=== PATIENT | male | born 1945 ===

== ENCOUNTER 2020-03-09 12:07 | Inpatient (IN) ==
[2020-03-09 15:00] LABS: ABG Base Excess -0.5 MMOL/L (-2.5-2.5); ABG HCO3 23.6 MMOL/L (20-26); ABG Oxygen Saturation 78.1 % (95-100); ABG PCO2 30.3 MM HG (35-48); ABG PH 7.471 (7.35-7.45); ABG PO2 42.9 MM HG (80-95); ABG TCO2 19.1 MMOL/L (23-27)
[2020-03-09] MEDS ORDERED: hydrALAZINE 20 MG/1 ML VIAL IV PRN (15:13)
[2020-03-09] MEDS ORDERED: MAGNESIUM SULF RIDER 4 GM in PREMIX 1 EACH IV PRN (15:17)
[2020-03-09] MEDS ORDERED: MAGNESIUM SULF RIDER 2 GM in PREMIX 1 EACH IV PRN (15:17)
[2020-03-09 15:30] LABS: Ferritin 647.9 ng/ml (26-388)
[2020-03-09] MEDS ORDERED: AZITHROMYCIN INJ 500 MG in SODIUM CHLORIDE 0.9% 250 ML IV SCH (15:30)
[2020-03-09] MEDS ORDERED: AZITHROMYCIN 250 MG TABLET PO ONE (15:30)
[2020-03-09] MEDS: ENOXAPARIN 80 MG/0.8 ML SYRINGE SUBCUT SCH (15:36)
[2020-03-09] MEDS: PANTOPRAZOLE 40 MG VIAL IV SCH (15:37)
[2020-03-09] MEDS: cefTRIAXone 1,000 MG in SYRINGE 1 EACH IV SCH (15:37)
[2020-03-09] MEDS: HYDROXYCHLOROQUINE 200 MG TABLET PO SCH ×2 (15:37→21:31)
[2020-03-09] MEDS: SODIUM CHLORIDE 0.9% 1,000 ML IV SCH ×2 (15:38→23:38)
[2020-03-09] MEDS: ZINC SULFATE 220 MG CAPSULE PO SCH (15:38)
[2020-03-09] MEDS ORDERED: VECURONIUM 10 MG VIAL IV ONE ×2 (20:03→21:09)
[2020-03-09] MEDS ORDERED: ETOMIDATE 20 MG/10 ML VIAL IV ONE ×2 (20:03→21:08)
[2020-03-09 21:37] LABS: ABG Base Excess -3.7 MMOL/L (-2.5-2.5); ABG HCO3 21.3 MMOL/L (20-26); ABG PH 7.226 (7.35-7.45); ABG TCO2 22.8 MMOL/L (23-27); Allen Test Positive; Pt O2 Delivery Device Ventilator
[2020-03-09] MEDS: hydrALAZINE 20 MG/1 ML VIAL IV PRN (22:34)
[2020-03-10] MEDS: ENOXAPARIN 80 MG/0.8 ML SYRINGE SUBCUT SCH ×2 (04:40→16:20)
[2020-03-10 04:45] LABS: Allen Test Positive; Pt O2 Delivery Device Ventilator
[2020-03-10 04:46] LABS: ABG HCO3 23.6 MMOL/L (20-26); ABG Oxygen Saturation 99.2 % (95-100); ABG PCO2 31.3 MM HG (35-48); ABG PH 7.455 (7.35-7.45); ABG TCO2 19.3 MMOL/L (23-27)
[2020-03-10 05:33] LABS: Basophils # 0.1 10*3/uL (0.0-0.2); Basophils % 0.8 % (0.0-0.8); Hematocrit 39.5 VOL% (42.0-52.0); Hemoglobin 12.4 GM/DL (14.0-18.0); Immature Granulocytes % 4.1 %; Immature Granulocytes Absolute 0.52 #; Lymphocytes # 0.4 10*3/uL (1.4-4.0); Mean Corpuscular HGB Conc 31.4 GM/DL (32-36); Mean Corpuscular Volume 88.2 FL (87-102); Mean Platelet Volume 11.5 FL (9.6-12.0); Monocytes % 2.1 % (1.7-12.7); Platelet Count 177 T/CUMM (130-400); Red Blood Count 4.48 MC/CUMM (3.8-5.5); Red Cell Distribution Width 15.8 % (9.3-17.3); White Blood Count 12.8 T/CUMM (4-12)
[2020-03-10 06:08] LABS: Band Neutrophils 14 % (0-10); Lymphocytes 5 % (20-55); Metamyelocytes 1 %; Segmented Neutrophils 76 % (50-85); Total Cells Counted 100
[2020-03-10 06:11] LABS: Acanthocytes Few; Burr Cells Slight; Hypochromasia 1+; Microcytosis Slight
[2020-03-10 06:12] LABS: Platelet Estimate Adequate
[2020-03-10] MEDS: SODIUM CHLORIDE 0.9% 1,000 ML IV SCH ×2 (07:38→16:51)
[2020-03-10] MEDS: AZITHROMYCIN 250 MG TABLET PO SCH (08:42)
[2020-03-10] MEDS: HYDROXYCHLOROQUINE 200 MG TABLET PO SCH ×2 (08:42→22:00)
[2020-03-10] MEDS: methylPREDNISolone SOD SUC 40 MG/1 ML VIAL IV SCH ×2 (08:58→16:52)
[2020-03-10 10:00] LABS: Albumin 2.2 G/DL (3.4-5.0); Bilirubin,Total 0.9 MG/DL (0.2-1.0); Calcium 8.1 MG/DL (8.5-10.1); Osmolality,Calculated 277.7 MOS/KG (273-304); Total Protein 6.4 G/DL (6.4-8.3)
[2020-03-10] MEDS ORDERED: GLUCAGON 1 MG VIAL IM PRN (11:14)
[2020-03-10] MEDS ORDERED: DEXTROSE 10% 250 ML BAG IV PRN (11:14)
[2020-03-10] MEDS ORDERED: NOREPINEPHRINE 8 MG in SODIUM CHLORIDE 0.9% 242 ML IV PRN (11:36)
[2020-03-10] MEDS ORDERED: SODIUM CHLORIDE 0.9% 1,000 ML IV ONE (12:20)
[2020-03-10] MEDS: INSULIN REGULAR 100 UNIT/ML SUBCUT SCH ×2 (12:25→17:40)
[2020-03-10] MEDS: PANTOPRAZOLE 40 MG VIAL IV SCH (15:38)
[2020-03-10] MEDS: cefTRIAXone 1,000 MG in SYRINGE 1 EACH IV SCH (15:40)
[2020-03-10] MEDS ORDERED: HYDROXYCHLOROQUINE 200 MG TABLET PO SCH (21:00)
[2020-03-11] MEDS: methylPREDNISolone SOD SUC 40 MG/1 ML VIAL IV SCH ×3 (00:15→17:58)
[2020-03-11] MEDS: INSULIN REGULAR 100 UNIT/ML SUBCUT SCH ×4 (01:22→18:39)
[2020-03-11] MEDS: SODIUM CHLORIDE 0.9% 1,000 ML IV SCH ×4 (01:24→23:14)
[2020-03-11 04:44] LABS: ABG Base Excess -2.5 MMOL/L (-2.5-2.5); ABG HCO3 22.3 MMOL/L (20-26); ABG Oxygen Saturation 98.5 % (95-100); ABG PCO2 34.2 MM HG (35-48); ABG PH 7.406 (7.35-7.45); ABG TCO2 18.9 MMOL/L (23-27); Allen Test Positive; Pt O2 Delivery Device Ventilator
[2020-03-11] MEDS: ENOXAPARIN 80 MG/0.8 ML SYRINGE SUBCUT SCH ×2 (04:54→14:49)
[2020-03-11 05:20] LABS: Basophils # 0.1 10*3/uL (0.0-0.2); Basophils % 0.4 % (0.0-0.8); Hematocrit 33.8 VOL% (42.0-52.0); Immature Granulocytes % 0.5 %; Immature Granulocytes Absolute 0.07 #; Lymphocytes # 0.3 10*3/uL (1.4-4.0); Lymphocytes % 1.9 % (21.2-54.2); Mean Corpuscular HGB Conc 30.8 GM/DL (32-36); Mean Corpuscular Volume 89.4 FL (87-102); Mean Platelet Volume 11.3 FL (9.6-12.0); Monocytes % 1.6 % (1.7-12.7); Neutrophils % 95.6 % (38.7-73.9); Platelet Count 186 T/CUMM (130-400); Red Blood Count 3.78 MC/CUMM (3.8-5.5); Red Cell Distribution Width 15.9 % (9.3-17.3); White Blood Count 14.4 T/CUMM (4-12)
[2020-03-11 05:22] LABS: Hemoglobin 10.4 GM/DL (14.0-18.0)
[2020-03-11 05:30] LABS: Calcium 7.6 MG/DL (8.5-10.1); Osmolality,Calculated 289.4 MOS/KG (273-304)
[2020-03-11 06:10] LABS: Band Neutrophils 4 % (0-10); Burr Cells Slight; Hypochromasia 1+; Lymphocytes 1 % (20-55); Ovalocytes Slight; Platelet Estimate Adequate; Segmented Neutrophils 93 % (50-85); Total Cells Counted 100
[2020-03-11 06:11] LABS: Microcytosis Slight
[2020-03-11] MEDS: HYDROXYCHLOROQUINE 200 MG TABLET PO SCH ×2 (08:27→20:01)
[2020-03-11] MEDS: AZITHROMYCIN 250 MG TABLET PO SCH (08:27)
[2020-03-11] MEDS: ZINC SULFATE 220 MG CAPSULE PO SCH (14:49)
[2020-03-11] MEDS: PANTOPRAZOLE 40 MG VIAL IV SCH (14:49)
[2020-03-11] MEDS: cefTRIAXone 1,000 MG in SYRINGE 1 EACH IV SCH (14:49)
[2020-03-11] MEDS ORDERED: NOREPINEPHRINE 16 MG in SODIUM CHLORIDE 0.9% 234 ML IV PRN (15:35)
[2020-03-11] MEDS ORDERED: SODIUM CHLORIDE 0.9% 1,000 ML IV ONE (16:00)
[2020-03-12] MEDS: INSULIN REGULAR 100 UNIT/ML SUBCUT SCH ×4 (00:08→18:10)
[2020-03-12] MEDS: methylPREDNISolone SOD SUC 40 MG/1 ML VIAL IV SCH ×3 (00:52→15:32)
[2020-03-12 03:30] LABS: ABG Base Excess -3.6 MMOL/L (-2.5-2.5); ABG HCO3 21.5 MMOL/L (20-26); ABG Oxygen Saturation 98.3 % (95-100); ABG PCO2 33.1 MM HG (35-48); ABG TCO2 18.4 MMOL/L (23-27)
[2020-03-12] MEDS: ENOXAPARIN 80 MG/0.8 ML SYRINGE SUBCUT SCH ×2 (03:58→15:25)
[2020-03-12 04:28] LABS: Basophils % 0.2 % (0.0-0.8); Hematocrit 32.6 VOL% (42.0-52.0); Hemoglobin 10.2 GM/DL (14.0-18.0); Immature Granulocytes % 0.4 %; Immature Granulocytes Absolute 0.08 #; Lymphocytes # 0.3 10*3/uL (1.4-4.0); Lymphocytes % 1.7 % (21.2-54.2); Mean Corpuscular HGB Conc 31.3 GM/DL (32-36); Mean Corpuscular Volume 87.9 FL (87-102); Mean Platelet Volume 11.2 FL (9.6-12.0); Monocytes % 2.2 % (1.7-12.7); Neutrophils % 95.5 % (38.7-73.9); Platelet Count 227 T/CUMM (130-400); Red Blood Count 3.71 MC/CUMM (3.8-5.5); White Blood Count 17.9 T/CUMM (4-12)
[2020-03-12 04:36] LABS: Calcium 8.2 MG/DL (8.5-10.1); Osmolality,Calculated 296.1 MOS/KG (273-304)
[2020-03-12 05:22] LABS: Band Neutrophils 4 % (0-10); Eosinophils 1 % (0-10); Metamyelocytes 3 %; Platelet Estimate Normal; Segmented Neutrophils 90 % (50-85); Total Cells Counted 100
[2020-03-12] MEDS: SODIUM CHLORIDE 0.9% 1,000 ML IV SCH (06:08)
[2020-03-12] MEDS: HYDROXYCHLOROQUINE 200 MG TABLET PO SCH ×2 (09:45→20:21)
[2020-03-12] MEDS: AZITHROMYCIN 250 MG TABLET PO SCH (09:45)
[2020-03-12] MEDS: cefTRIAXone 1,000 MG in SYRINGE 1 EACH IV SCH (15:28)
[2020-03-12] MEDS: PANTOPRAZOLE 40 MG VIAL IV SCH (15:28)
[2020-03-13] MEDS: methylPREDNISolone SOD SUC 40 MG/1 ML VIAL IV SCH ×3 (00:05→15:54)
[2020-03-13] MEDS: INSULIN REGULAR 100 UNIT/ML SUBCUT SCH ×4 (00:05→17:55)
[2020-03-13] MEDS: ENOXAPARIN 80 MG/0.8 ML SYRINGE SUBCUT SCH ×2 (03:54→16:00)
[2020-03-13 04:32] LABS: ABG Base Excess -2.9 MMOL/L (-2.5-2.5); ABG HCO3 21.3 MMOL/L (20-26); ABG Oxygen Saturation 98.6 % (95-100); ABG PCO2 34.8 MM HG (35-48); ABG PH 7.404 (7.35-7.45); ABG PO2 150.6 MM HG (80-95); ABG TCO2 22.3 MMOL/L (23-27); Allen Test Positive; Pt O2 Delivery Device Ventilator
[2020-03-13 04:44] LABS: Basophils % 0.1 % (0.0-0.8); Hematocrit 31.7 VOL% (42.0-52.0); Immature Granulocytes % 1.2 %; Immature Granulocytes Absolute 0.14 #; Lymphocytes # 0.4 10*3/uL (1.4-4.0); Lymphocytes % 3.1 % (21.2-54.2); Mean Corpuscular HGB Conc 31.5 GM/DL (32-36); Mean Corpuscular Volume 86.1 FL (87-102); NRBC # 0.03 10*3/uL; Neutrophils % 91.6 % (38.7-73.9); Platelet Count 239 T/CUMM (130-400); Red Blood Count 3.68 MC/CUMM (3.8-5.5); Red Cell Distribution Width 16.1 % (9.3-17.3); White Blood Count 11.5 T/CUMM (4-12)
[2020-03-13 05:07] LABS: Band Neutrophils 1 % (0-10); Lymphocytes 3 % (20-55); Segmented Neutrophils 93 % (50-85); Total Cells Counted 100
[2020-03-13 05:08] LABS: Burr Cells Slight; Hypochromasia 1+; Ovalocytes Slight; Platelet Estimate Adequate
[2020-03-13] MEDS: HYDROXYCHLOROQUINE 200 MG TABLET PO SCH ×2 (08:10→20:35)
[2020-03-13] MEDS: MULTIVITAMIN LIQUID (CENTRUM) 60 ML BOTTLE PO SCH (08:10)
[2020-03-13] MEDS: AZITHROMYCIN 250 MG TABLET PO SCH (08:10)
[2020-03-13] MEDS: PANTOPRAZOLE 40 MG VIAL IV SCH (15:48)
[2020-03-13] MEDS: cefTRIAXone 1,000 MG in SYRINGE 1 EACH IV SCH (15:50)
[2020-03-13] MEDS: ZINC SULFATE 220 MG CAPSULE PO SCH (16:00)
[2020-03-14] MEDS: methylPREDNISolone SOD SUC 40 MG/1 ML VIAL IV SCH ×3 (00:15→16:12)
[2020-03-14] MEDS: INSULIN REGULAR 100 UNIT/ML SUBCUT SCH ×4 (00:16→17:44)
[2020-03-14 04:59] LABS: ABG Base Excess -2.2 MMOL/L (-2.5-2.5); ABG HCO3 21.7 MMOL/L (20-26); ABG Oxygen Saturation 96.2 % (95-100); ABG PH 7.422 (7.35-7.45); ABG PO2 88.2 MM HG (80-95); ABG TCO2 22.7 MMOL/L (23-27); Allen Test Positive; Pt O2 Delivery Device Ventilator
[2020-03-14] MEDS: ENOXAPARIN 80 MG/0.8 ML SYRINGE SUBCUT SCH ×2 (05:17→16:12)
[2020-03-14 05:18] LABS: Basophils % 0.2 % (0.0-0.8); Hemoglobin 10.1 GM/DL (14.0-18.0); Immature Granulocytes % 4.6 %; Lymphocytes # 0.3 10*3/uL (1.4-4.0); Lymphocytes % 5.2 % (21.2-54.2); Mean Corpuscular HGB Conc 31.6 GM/DL (32-36); Mean Corpuscular Volume 85.3 FL (87-102); Mean Platelet Volume 10.9 FL (9.6-12.0); Monocytes % 8.5 % (1.7-12.7); NRBC # 0.02 10*3/uL; Neutrophils % 81.5 % (38.7-73.9); Platelet Count 267 T/CUMM (130-400); Red Blood Count 3.75 MC/CUMM (3.8-5.5); Red Cell Distribution Width 16.3 % (9.3-17.3); White Blood Count 6.6 T/CUMM (4-12)
[2020-03-14 05:37] LABS: Calcium 8.2 MG/DL (8.5-10.1); Osmolality,Calculated 304.6 MOS/KG (273-304)
[2020-03-14] MEDS: MULTIVITAMIN LIQUID (CENTRUM) 60 ML BOTTLE PO SCH (08:07)
[2020-03-14 09:17] LABS: Lymphocytes 6 % (20-55); Metamyelocytes 2 %; Segmented Neutrophils 89 % (50-85); Total Cells Counted 100
[2020-03-14 09:18] LABS: Atypical Lymphocytes Few; Hypochromasia 1+; Microcytosis 1+; Platelet Estimate Increased; Polychromasia Slight; Spherocytes Few
[2020-03-14] MEDS: DEXMEDETOMIDINE 200 MCG in SODIUM CHLORIDE 0.9% 48 ML IV PRN ×3 (12:36→21:01)
[2020-03-14] MEDS: PANTOPRAZOLE 40 MG VIAL IV SCH (16:07)
[2020-03-14] MEDS: cefTRIAXone 1,000 MG in SYRINGE 1 EACH IV SCH (16:09)
[2020-03-14] MEDS: ASCORBIC ACID 500 MG TABLET PO SCH (20:59)
[2020-03-15] MEDS: INSULIN REGULAR 100 UNIT/ML SUBCUT SCH ×5 (00:17→23:44)
[2020-03-15] MEDS: ENOXAPARIN 80 MG/0.8 ML SYRINGE SUBCUT SCH ×2 (03:25→16:20)
[2020-03-15] MEDS: methylPREDNISolone SOD SUC 40 MG/1 ML VIAL IV SCH ×2 (03:25→16:26)
[2020-03-15 04:36] LABS: Basophils % 0.4 % (0.0-0.8); Eosinophils # 0.1 10*3/uL (0.0-0.87); Eosinophils % 0.9 % (0.00-10.9); Hematocrit 33.3 VOL% (42.0-52.0); Hemoglobin 10.5 GM/DL (14.0-18.0); Immature Granulocytes % 4.9 %; Immature Granulocytes Absolute 0.26 #; Lymphocytes # 0.5 10*3/uL (1.4-4.0); Lymphocytes % 9.9 % (21.2-54.2); Mean Corpuscular HGB Conc 31.5 GM/DL (32-36); Mean Corpuscular Volume 85.8 FL (87-102); Mean Platelet Volume 10.6 FL (9.6-12.0); Neutrophils % 75.9 % (38.7-73.9); Platelet Count 246 T/CUMM (130-400); Red Blood Count 3.88 MC/CUMM (3.8-5.5); Red Cell Distribution Width 16.3 % (9.3-17.3); White Blood Count 5.4 T/CUMM (4-12)
[2020-03-15 04:55] LABS: Calcium 8.1 MG/DL (8.5-10.1); Osmolality,Calculated 304.4 MOS/KG (273-304)
[2020-03-15 05:01] LABS: ABG Base Excess -2.1 MMOL/L (-2.5-2.5); ABG HCO3 22.2 MMOL/L (20-26); ABG Oxygen Saturation 96.7 % (95-100); ABG PCO2 36.5 MM HG (35-48); ABG PH 7.402 (7.35-7.45); ABG PO2 94.3 MM HG (80-95); ABG TCO2 23.3 MMOL/L (23-27); Allen Test Positive; Pt O2 Delivery Device Ventilator
[2020-03-15] MEDS: MULTIVITAMIN LIQUID (CENTRUM) 60 ML BOTTLE PO SCH (08:22)
[2020-03-15] MEDS: ZINC GLUCONATE 50 MG TABLET PO SCH (08:22)
[2020-03-15] MEDS: ASCORBIC ACID 500 MG TABLET PO SCH ×2 (08:22→21:51)
[2020-03-15] MEDS: DEXMEDETOMIDINE 200 MCG in SODIUM CHLORIDE 0.9% 48 ML IV PRN ×3 (08:34→19:45)
[2020-03-15 09:22] LABS: Band Neutrophils 1 % (0-10); Eosinophils 3 % (0-10); Hypochromasia 2+; Lymphocytes 5 % (20-55); Microcytosis 1+; Platelet Estimate Normal; Polychromasia Slight; Segmented Neutrophils 80 % (50-85); Total Cells Counted 100
[2020-03-15 09:23] LABS: Ovalocytes Few
[2020-03-15] MEDS ORDERED: FUROSEMIDE 40 MG/4 ML VIAL IV ONE (11:11)
[2020-03-15 11:17] LABS: ABG Base Excess -0.7 MMOL/L (-2.5-2.5); ABG HCO3 23.8 MMOL/L (20-26); ABG PCO2 38.1 MM HG (35-48); ABG PH 7.404 (7.35-7.45); ABG PO2 86.2 MM HG (80-95); ABG TCO2 21.3 MMOL/L (23-27); Allen Test Positive; Pt O2 Delivery Device Ventilator
[2020-03-15] MEDS: cefTRIAXone 1,000 MG in SYRINGE 1 EACH IV SCH (16:23)
[2020-03-15] MEDS: PANTOPRAZOLE 40 MG VIAL IV SCH (16:55)
[2020-03-15] MEDS: hydrALAZINE 20 MG/1 ML VIAL IV PRN (22:17)
[2020-03-15] MEDS ORDERED: ROCURONIUM 500 MG in SODIUM CHLORIDE 0.9% 500 ML IV PRN (23:30)
[2020-03-16] MEDS: fentaNYL INJ 1,250 MCG in SODIUM CHLORIDE 0.9% 225 ML IV PRN ×5 (00:11→23:51)
[2020-03-16] MEDS: methylPREDNISolone SOD SUC 40 MG/1 ML VIAL IV SCH ×2 (04:00→15:38)
[2020-03-16] MEDS: ENOXAPARIN 80 MG/0.8 ML SYRINGE SUBCUT SCH ×2 (04:00→15:38)
[2020-03-16 04:24] LABS: ABG Base Excess -1.2 MMOL/L (-2.5-2.5); ABG HCO3 22.9 MMOL/L (20-26); ABG Oxygen Saturation 97.7 % (95-100); ABG PCO2 36.2 MM HG (35-48); ABG PH 7.419 (7.35-7.45); ABG PO2 105.6 MM HG (80-95); Allen Test Positive; Pt O2 Delivery Device Ventilator
[2020-03-16 04:29] LABS: Basophils % 0.4 % (0.0-0.8); Eosinophils % 0.5 % (0.00-10.9); Hematocrit 34.1 VOL% (42.0-52.0); Hemoglobin 10.9 GM/DL (14.0-18.0); Immature Granulocytes % 4.8 %; Immature Granulocytes Absolute 0.41 #; Lymphocytes # 0.5 10*3/uL (1.4-4.0); Lymphocytes % 5.6 % (21.2-54.2); Mean Platelet Volume 10.2 FL (9.6-12.0); Monocytes % 5.1 % (1.7-12.7); Neutrophils % 83.6 % (38.7-73.9); Platelet Count 243 T/CUMM (130-400); Red Blood Count 4.01 MC/CUMM (3.8-5.5); Red Cell Distribution Width 16.2 % (9.3-17.3); White Blood Count 8.6 T/CUMM (4-12)
[2020-03-16 04:46] LABS: Calcium 8.6 MG/DL (8.5-10.1); Osmolality,Calculated 300.7 MOS/KG (273-304)
[2020-03-16 04:52] LABS: Hypochromasia Slight; Lymphocytes 6 % (20-55); Microcytosis Slight; Ovalocytes Slight; Platelet Estimate Adequate; Segmented Neutrophils 91 % (50-85); Total Cells Counted 100
[2020-03-16] MEDS: INSULIN REGULAR 100 UNIT/ML SUBCUT SCH ×3 (06:27→18:47)
[2020-03-16] MEDS: ASCORBIC ACID 500 MG TABLET PO SCH ×2 (08:40→20:47)
[2020-03-16] MEDS: ZINC GLUCONATE 50 MG TABLET PO SCH (08:40)
[2020-03-16] MEDS: MULTIVITAMIN LIQUID (CENTRUM) 60 ML BOTTLE PO SCH (08:40)
[2020-03-16] MEDS: cefTRIAXone 1,000 MG in SYRINGE 1 EACH IV SCH (15:38)
[2020-03-16] MEDS: PANTOPRAZOLE 40 MG VIAL IV SCH (15:39)
[2020-03-17] MEDS: INSULIN REGULAR 100 UNIT/ML SUBCUT SCH ×4 (00:28→18:29)
[2020-03-17 04:14] LABS: ABG Base Excess -1.2 MMOL/L (-2.5-2.5); ABG HCO3 24.2 MMOL/L (20-26); ABG Oxygen Saturation 98.1 % (95-100); ABG PCO2 43.6 MM HG (35-48); ABG PH 7.363 (7.35-7.45); ABG PO2 117.7 MM HG (80-95); ABG TCO2 25.6 MMOL/L (23-27); Allen Test Positive; Pt O2 Delivery Device Ventilator
[2020-03-17 04:37] LABS: Basophils % 0.2 % (0.0-0.8); Eosinophils # 0.1 10*3/uL (0.0-0.87); Eosinophils % 1.1 % (0.00-10.9); Hematocrit 34.6 VOL% (42.0-52.0); Hemoglobin 10.7 GM/DL (14.0-18.0); Immature Granulocytes % 3.7 %; Immature Granulocytes Absolute 0.35 #; Lymphocytes # 0.6 10*3/uL (1.4-4.0); Lymphocytes % 5.9 % (21.2-54.2); Mean Corpuscular HGB Conc 30.9 GM/DL (32-36); Mean Corpuscular Volume 86.9 FL (87-102); Mean Platelet Volume 11.2 FL (9.6-12.0); Monocytes % 2.9 % (1.7-12.7); Neutrophils % 86.2 % (38.7-73.9); Platelet Count 253 T/CUMM (130-400); Red Blood Count 3.98 MC/CUMM (3.8-5.5); Red Cell Distribution Width 16.6 % (9.3-17.3); White Blood Count 9.5 T/CUMM (4-12)
[2020-03-17] MEDS: ENOXAPARIN 80 MG/0.8 ML SYRINGE SUBCUT SCH ×2 (04:37→15:13)
[2020-03-17] MEDS: methylPREDNISolone SOD SUC 40 MG/1 ML VIAL IV SCH ×2 (04:37→15:13)
[2020-03-17 05:00] LABS: Calcium 8.1 MG/DL (8.5-10.1); Osmolality,Calculated 300.7 MOS/KG (273-304)
[2020-03-17] MEDS: fentaNYL INJ 1,250 MCG in SODIUM CHLORIDE 0.9% 225 ML IV PRN ×4 (07:52→20:39)
[2020-03-17] MEDS: ASCORBIC ACID 500 MG TABLET PO SCH ×2 (08:45→20:09)
[2020-03-17] MEDS: ZINC GLUCONATE 50 MG TABLET PO SCH (08:45)
[2020-03-17] MEDS: hydrALAZINE 20 MG/1 ML VIAL IV PRN (09:38)
[2020-03-17] MEDS ORDERED: DIGOXIN 0.5 MG/2 ML AMP IV ONE ×2 (11:31→13:30)
[2020-03-17] MEDS: MULTIVITAMIN LIQUID (CENTRUM) 60 ML BOTTLE PO SCH (12:43)
[2020-03-17] MEDS: ACETAMINOPHEN 325 MG TABLET PO PRN ×2 (13:02→17:30)
[2020-03-17] MEDS: PANTOPRAZOLE 40 MG VIAL IV SCH (15:14)
[2020-03-17 21:21] LABS: ABG Base Excess -2.8 MMOL/L (-2.5-2.5); ABG HCO3 22.1 MMOL/L (20-26); ABG PCO2 43.3 MM HG (35-48); ABG PH 7.336 (7.35-7.45); ABG PO2 81.3 MM HG (80-95); ABG TCO2 20.3 MMOL/L (23-27); Allen Test Positive; Pt O2 Delivery Device Ventilator
[2020-03-18] MEDS: fentaNYL INJ 1,250 MCG in SODIUM CHLORIDE 0.9% 225 ML IV PRN ×2 (00:01→07:10)
[2020-03-18] MEDS: INSULIN REGULAR 100 UNIT/ML SUBCUT SCH ×5 (00:49→23:52)
[2020-03-18] MEDS: ENOXAPARIN 80 MG/0.8 ML SYRINGE SUBCUT SCH ×2 (04:00→15:48)
[2020-03-18] MEDS: methylPREDNISolone SOD SUC 40 MG/1 ML VIAL IV SCH ×2 (04:00→15:46)
[2020-03-18 05:03] LABS: Basophils % 0.1 % (0.0-0.8); Eosinophils % 0.2 % (0.00-10.9); Hematocrit 33.6 VOL% (42.0-52.0); Hemoglobin 10.5 GM/DL (14.0-18.0); Immature Granulocytes % 0.8 %; Immature Granulocytes Absolute 0.14 #; Lymphocytes # 0.4 10*3/uL (1.4-4.0); Lymphocytes % 2.4 % (21.2-54.2); Mean Corpuscular HGB Conc 31.3 GM/DL (32-36); Mean Corpuscular Volume 87.5 FL (87-102); Mean Platelet Volume 10.9 FL (9.6-12.0); Monocytes % 0.7 % (1.7-12.7); Neutrophils % 95.8 % (38.7-73.9); Platelet Count 226 T/CUMM (130-400); Red Blood Count 3.84 MC/CUMM (3.8-5.5); Red Cell Distribution Width 16.5 % (9.3-17.3); White Blood Count 16.8 T/CUMM (4-12)
[2020-03-18 05:21] LABS: Calcium 8.2 MG/DL (8.5-10.1); Osmolality,Calculated 291.1 MOS/KG (273-304)
[2020-03-18 05:23] LABS: Band Neutrophils 6 % (0-10); Hypochromasia 1+; Lymphocytes 1 % (20-55); Microcytosis 1+; Ovalocytes Slight; Polychromasia Slight; Segmented Neutrophils 93 % (50-85); Total Cells Counted 100
[2020-03-18 05:24] LABS: Platelet Estimate Normal
[2020-03-18] MEDS: fentaNYL INJ 2,500 MCG in SODIUM CHLORIDE 0.9% 450 ML IV PRN ×2 (07:10→21:40)
[2020-03-18] MEDS: ASCORBIC ACID 500 MG TABLET PO SCH ×2 (08:41→20:37)
[2020-03-18] MEDS: ZINC GLUCONATE 50 MG TABLET PO SCH (08:41)
[2020-03-18] MEDS: MULTIVITAMIN LIQUID (CENTRUM) 60 ML BOTTLE PO SCH ×2 (08:43→12:11)
[2020-03-18] MEDS: DIGOXIN 0.25 MG TABLET PO SCH (12:10)
[2020-03-18] MEDS: hydrALAZINE 20 MG/1 ML VIAL IV PRN (14:35)
[2020-03-18] MEDS: PANTOPRAZOLE 40 MG VIAL IV SCH (15:44)
[2020-03-18] MEDS: ACETAMINOPHEN 325 MG TABLET PO PRN (16:05)
[2020-03-19] MEDS: methylPREDNISolone SOD SUC 40 MG/1 ML VIAL IV SCH ×2 (04:12→16:06)
[2020-03-19] MEDS: ENOXAPARIN 80 MG/0.8 ML SYRINGE SUBCUT SCH ×2 (04:12→16:06)
[2020-03-19 04:30] LABS: ABG HCO3 22.7 MMOL/L (20-26); ABG Oxygen Saturation 95.9 % (95-100); ABG PCO2 39.7 MM HG (35-48); ABG PH 7.372 (7.35-7.45); ABG PO2 80.6 MM HG (80-95); ABG TCO2 20.7 MMOL/L (23-27); Allen Test Positive; Pt O2 Delivery Device Ventilator
[2020-03-19 04:38] LABS: Basophils % 0.1 % (0.0-0.8); Hematocrit 33.9 VOL% (42.0-52.0); Hemoglobin 10.7 GM/DL (14.0-18.0); Immature Granulocytes % 0.8 %; Immature Granulocytes Absolute 0.13 #; Lymphocytes # 0.3 10*3/uL (1.4-4.0); Lymphocytes % 1.8 % (21.2-54.2); Mean Corpuscular HGB Conc 31.6 GM/DL (32-36); Mean Corpuscular Volume 86.5 FL (87-102); Mean Platelet Volume 10.7 FL (9.6-12.0); Monocytes % 0.7 % (1.7-12.7); Neutrophils % 96.6 % (38.7-73.9); Platelet Count 230 T/CUMM (130-400); Red Blood Count 3.92 MC/CUMM (3.8-5.5); Red Cell Distribution Width 16.3 % (9.3-17.3); White Blood Count 15.6 T/CUMM (4-12)
[2020-03-19] MEDS: fentaNYL INJ 2,500 MCG in SODIUM CHLORIDE 0.9% 450 ML IV PRN ×2 (04:49→11:45)
[2020-03-19 04:51] LABS: Calcium 8.1 MG/DL (8.5-10.1); Osmolality,Calculated 291.4 MOS/KG (273-304)
[2020-03-19 05:13] LABS: Band Neutrophils 2 % (0-10); Hypochromasia 1+; Lymphocytes 3 % (20-55); Segmented Neutrophils 93 % (50-85); Total Cells Counted 100
[2020-03-19 05:14] LABS: Microcytosis 1+; Ovalocytes Slight; Platelet Estimate Normal; Spherocytes Slight; Target Cells Slight
[2020-03-19] MEDS: INSULIN REGULAR 100 UNIT/ML SUBCUT SCH ×3 (05:14→17:54)
[2020-03-19] MEDS: MULTIVITAMIN LIQUID (CENTRUM) 60 ML BOTTLE PO SCH (08:11)
[2020-03-19] MEDS: ZINC GLUCONATE 50 MG TABLET PO SCH (08:11)
[2020-03-19] MEDS: ASCORBIC ACID 500 MG TABLET PO SCH ×2 (08:11→20:12)
[2020-03-19] MEDS ORDERED: FUROSEMIDE 40 MG/4 ML VIAL IV ONE (10:24)
[2020-03-19] MEDS: DIGOXIN 0.25 MG TABLET PO SCH (13:23)
[2020-03-19] MEDS: PANTOPRAZOLE 40 MG VIAL IV SCH ×2 (16:06→16:43)
[2020-03-19] MEDS ORDERED: DIGOXIN 0.5 MG/2 ML AMP IV ONE (16:28)
[2020-03-19 17:15] LABS: Calcium 8.8 MG/DL (8.5-10.1)
[2020-03-19] MEDS: METOPROLOL TARTRATE 5 MG/5 ML VIAL IV PRN ×3 (17:29→18:11)
[2020-03-19] MEDS ORDERED: RACEPINEPHRINE 0.5 ML NEB RESP TX ONE (17:53)
[2020-03-19] MEDS ORDERED: METOPROLOL TARTRATE 5 MG/5 ML VIAL IV ONE (18:10)
[2020-03-19] MEDS: hydrALAZINE 20 MG/1 ML VIAL IV PRN (20:13)
[2020-03-20] MEDS: INSULIN REGULAR 100 UNIT/ML SUBCUT SCH ×4 (00:33→18:02)
[2020-03-20] MEDS: hydrALAZINE 20 MG/1 ML VIAL IV PRN ×2 (02:55→09:14)
[2020-03-20] MEDS: ENOXAPARIN 80 MG/0.8 ML SYRINGE SUBCUT SCH ×2 (04:41→15:30)
[2020-03-20] MEDS: methylPREDNISolone SOD SUC 40 MG/1 ML VIAL IV SCH ×2 (04:42→15:30)
[2020-03-20 05:31] LABS: Basophils % 0.1 % (0.0-0.8); Hematocrit 37.8 VOL% (42.0-52.0); Hemoglobin 12.2 GM/DL (14.0-18.0); Immature Granulocytes % 0.5 %; Immature Granulocytes Absolute 0.04 #; Lymphocytes # 0.4 10*3/uL (1.4-4.0); Lymphocytes % 4.4 % (21.2-54.2); Mean Corpuscular HGB Conc 32.3 GM/DL (32-36); Mean Corpuscular Volume 82.7 FL (87-102); Mean Platelet Volume 10.9 FL (9.6-12.0); Monocytes % 2.2 % (1.7-12.7); Neutrophils % 92.8 % (38.7-73.9); Platelet Count 285 T/CUMM (130-400); Red Blood Count 4.57 MC/CUMM (3.8-5.5); Red Cell Distribution Width 15.9 % (9.3-17.3); White Blood Count 8.7 T/CUMM (4-12)
[2020-03-20 05:46] LABS: Calcium 8.8 MG/DL (8.5-10.1); Osmolality,Calculated 286.7 MOS/KG (273-304)
[2020-03-20 05:58] LABS: Band Neutrophils 5 % (0-10); Hypochromasia 1+; Lymphocytes 2 % (20-55); Segmented Neutrophils 90 % (50-85); Total Cells Counted 100
[2020-03-20 05:59] LABS: Microcytosis 1+; Platelet Estimate Normal
[2020-03-20] MEDS: ASCORBIC ACID 500 MG TABLET PO SCH ×2 (09:02→20:05)
[2020-03-20] MEDS: ZINC GLUCONATE 50 MG TABLET PO SCH (09:02)
[2020-03-20] MEDS: MULTIVITAMIN LIQUID (CENTRUM) 60 ML BOTTLE PO SCH (09:05)
[2020-03-20] MEDS ORDERED: VERAPAMIL 5 MG/2 ML VIAL IV PRN (09:36)
[2020-03-20] MEDS: METOPROLOL TARTRATE 100 MG TABLET PO SCH ×2 (09:57→20:06)
[2020-03-20] MEDS: cloNIDine 0.3 MG/24 HR PATCH TRANSDERM SCH (12:01)
[2020-03-20] MEDS: DIGOXIN 0.25 MG TABLET PO SCH (12:01)
[2020-03-20] MEDS: PANTOPRAZOLE 40 MG VIAL IV SCH (17:44)
[2020-03-21] MEDS: INSULIN REGULAR 100 UNIT/ML SUBCUT SCH ×4 (00:39→18:05)
[2020-03-21] MEDS: ENOXAPARIN 80 MG/0.8 ML SYRINGE SUBCUT SCH ×2 (03:57→15:50)
[2020-03-21] MEDS: methylPREDNISolone SOD SUC 40 MG/1 ML VIAL IV SCH ×2 (03:57→15:50)
[2020-03-21] MEDS: hydrALAZINE 20 MG/1 ML VIAL IV PRN (04:38)
[2020-03-21 04:49] LABS: Hematocrit 34.7 VOL% (42.0-52.0); Hemoglobin 11.1 GM/DL (14.0-18.0); Immature Granulocytes % 0.6 %; Immature Granulocytes Absolute 0.04 #; Lymphocytes # 0.4 10*3/uL (1.4-4.0); Lymphocytes % 6.3 % (21.2-54.2); Mean Corpuscular Volume 84.2 FL (87-102); Mean Platelet Volume 11.4 FL (9.6-12.0); Monocytes % 3.7 % (1.7-12.7); Neutrophils % 89.4 % (38.7-73.9); Platelet Count 342 T/CUMM (130-400); Red Blood Count 4.12 MC/CUMM (3.8-5.5); Red Cell Distribution Width 15.8 % (9.3-17.3)
[2020-03-21 05:11] LABS: Calcium 8.5 MG/DL (8.5-10.1); Osmolality,Calculated 291.4 MOS/KG (273-304)
[2020-03-21 05:34] LABS: Band Neutrophils 3 % (0-10); Hypochromasia Slight; Lymphocytes 3 % (20-55); Platelet Estimate Adequate; Segmented Neutrophils 87 % (50-85); Total Cells Counted 100
[2020-03-21 05:35] LABS: Microcytosis Slight; Ovalocytes Slight
[2020-03-21] MEDS: ZINC GLUCONATE 50 MG TABLET PO SCH (08:50)
[2020-03-21] MEDS: METOPROLOL TARTRATE 100 MG TABLET PO SCH ×2 (08:50→21:12)
[2020-03-21] MEDS: ASCORBIC ACID 500 MG TABLET PO SCH ×2 (08:50→21:12)
[2020-03-21] MEDS: MULTIVITAMIN LIQUID (CENTRUM) 60 ML BOTTLE PO SCH (11:35)
[2020-03-21] MEDS: DIGOXIN 0.25 MG TABLET PO SCH (12:05)
[2020-03-21] MEDS: PANTOPRAZOLE 40 MG VIAL IV SCH (15:52)
[2020-03-22] MEDS: INSULIN REGULAR 100 UNIT/ML SUBCUT SCH ×4 (01:35→17:49)
[2020-03-22] MEDS: ENOXAPARIN 80 MG/0.8 ML SYRINGE SUBCUT SCH ×2 (04:10→17:20)
[2020-03-22] MEDS: methylPREDNISolone SOD SUC 40 MG/1 ML VIAL IV SCH ×2 (04:15→17:20)
[2020-03-22 04:30] LABS: Albumin 1.6 G/DL (3.4-5.0); Bilirubin,Total 0.6 MG/DL (0.2-1.0); Calcium 7.7 MG/DL (8.5-10.1); Osmolality,Calculated 292.3 MOS/KG (273-304); Total Protein 5.6 G/DL (6.4-8.3)
[2020-03-22] MEDS: ASCORBIC ACID 500 MG TABLET PO SCH ×2 (09:22→23:24)
[2020-03-22] MEDS: ZINC GLUCONATE 50 MG TABLET PO SCH (09:22)
[2020-03-22] MEDS: METOPROLOL TARTRATE 100 MG TABLET PO SCH ×2 (09:22→23:24)
[2020-03-22] MEDS: MULTIVITAMIN LIQUID (CENTRUM) 60 ML BOTTLE PO SCH (09:22)
[2020-03-22] MEDS: DIGOXIN 0.25 MG TABLET PO SCH (13:17)
[2020-03-22] MEDS: PANTOPRAZOLE 40 MG VIAL IV SCH (17:16)
[2020-03-23] MEDS: INSULIN REGULAR 100 UNIT/ML SUBCUT SCH ×4 (01:14→19:25)
[2020-03-23] MEDS: ENOXAPARIN 80 MG/0.8 ML SYRINGE SUBCUT SCH ×2 (04:08→19:25)
[2020-03-23] MEDS: methylPREDNISolone SOD SUC 40 MG/1 ML VIAL IV SCH ×2 (04:08→19:25)
[2020-03-23 05:50] LABS: Albumin 1.5 G/DL (3.4-5.0); Bilirubin,Total 0.6 MG/DL (0.2-1.0); Calcium 8.1 MG/DL (8.5-10.1); Osmolality,Calculated 282.7 MOS/KG (273-304); Total Protein 5.6 G/DL (6.4-8.3)
[2020-03-23] MEDS: METOPROLOL TARTRATE 100 MG TABLET PO SCH ×2 (12:25→20:30)
[2020-03-23] MEDS: MULTIVITAMIN LIQUID (CENTRUM) 60 ML BOTTLE PO SCH (12:25)
[2020-03-23] MEDS: ZINC GLUCONATE 50 MG TABLET PO SCH (12:27)
[2020-03-23] MEDS: ASCORBIC ACID 500 MG TABLET PO SCH ×2 (12:27→20:30)
[2020-03-23] MEDS: DIGOXIN 0.25 MG TABLET PO SCH (19:24)
[2020-03-23] MEDS: PANTOPRAZOLE 40 MG VIAL IV SCH (19:25)
[2020-03-24] MEDS: INSULIN REGULAR 100 UNIT/ML SUBCUT SCH ×4 (02:16→17:40)
[2020-03-24] MEDS: ENOXAPARIN 80 MG/0.8 ML SYRINGE SUBCUT SCH ×2 (03:40→22:00)
[2020-03-24] MEDS: methylPREDNISolone SOD SUC 40 MG/1 ML VIAL IV SCH ×2 (03:41→15:55)
[2020-03-24 06:52] LABS: Basophils % 0.1 % (0.0-0.8); Hematocrit 31.2 VOL% (42.0-52.0); Hemoglobin 9.7 GM/DL (14.0-18.0); Immature Granulocytes % 0.6 %; Immature Granulocytes Absolute 0.04 #; Lymphocytes # 0.3 10*3/uL (1.4-4.0); Lymphocytes % 4.9 % (21.2-54.2); Mean Corpuscular HGB Conc 31.1 GM/DL (32-36); Mean Corpuscular Volume 86.2 FL (87-102); Mean Platelet Volume 11.8 FL (9.6-12.0); Monocytes % 3.6 % (1.7-12.7); Neutrophils % 90.8 % (38.7-73.9); Platelet Count 279 T/CUMM (130-400); Red Blood Count 3.62 MC/CUMM (3.8-5.5); Red Cell Distribution Width 15.8 % (9.3-17.3); White Blood Count 6.9 T/CUMM (4-12)
[2020-03-24 07:22] LABS: Band Neutrophils 8 % (0-10); Lymphocytes 2 % (20-55); Segmented Neutrophils 88 % (50-85); Total Cells Counted 100
[2020-03-24 07:23] LABS: Hypochromasia 1+; Microcytosis Slight; Platelet Estimate Normal
[2020-03-24 07:29] LABS: Calcium 8.7 MG/DL (8.5-10.1); Osmolality,Calculated 283.8 MOS/KG (273-304)
[2020-03-24] MEDS: ZINC GLUCONATE 50 MG TABLET PO SCH (08:39)
[2020-03-24] MEDS: MULTIVITAMIN LIQUID (CENTRUM) 60 ML BOTTLE PO SCH (08:39)
[2020-03-24] MEDS: METOPROLOL TARTRATE 100 MG TABLET PO SCH ×3 (08:39→22:00)
[2020-03-24] MEDS: ASCORBIC ACID 500 MG TABLET PO SCH ×2 (08:39→22:00)
[2020-03-24] MEDS: DIGOXIN 0.25 MG TABLET PO SCH (12:06)
[2020-03-25] MEDS: INSULIN REGULAR 100 UNIT/ML SUBCUT SCH ×4 (01:32→18:20)
[2020-03-25] MEDS: methylPREDNISolone SOD SUC 40 MG/1 ML VIAL IV SCH (04:45)
[2020-03-25] MEDS: METOPROLOL TARTRATE 100 MG TABLET PO SCH (09:51)
[2020-03-25] MEDS: ENOXAPARIN 80 MG/0.8 ML SYRINGE SUBCUT SCH ×2 (10:30→21:00)
[2020-03-25] MEDS: MULTIVITAMIN LIQUID (CENTRUM) 60 ML BOTTLE PO SCH (10:30)
[2020-03-25] MEDS: ZINC GLUCONATE 50 MG TABLET PO SCH (10:31)
[2020-03-25] MEDS: ASCORBIC ACID 500 MG TABLET PO SCH ×2 (10:31→21:00)
[2020-03-25] MEDS: DIGOXIN 0.25 MG TABLET PO SCH (15:00)
[2020-03-26] MEDS: INSULIN REGULAR 100 UNIT/ML SUBCUT SCH ×4 (00:49→18:28)
[2020-03-26] MEDS ORDERED: methylPREDNISolone SOD SUC 40 MG/1 ML VIAL IV SCH (09:00)
[2020-03-26] MEDS: ENOXAPARIN 80 MG/0.8 ML SYRINGE SUBCUT SCH (09:48)
[2020-03-26] MEDS: MULTIVITAMIN LIQUID (CENTRUM) 60 ML BOTTLE PO SCH (09:49)
[2020-03-26] MEDS: METOPROLOL TARTRATE 100 MG TABLET PO SCH ×2 (09:49→21:55)
[2020-03-26] MEDS: ASCORBIC ACID 500 MG TABLET PO SCH ×2 (09:49→21:55)
[2020-03-26] MEDS: ZINC GLUCONATE 50 MG TABLET PO SCH (09:49)
[2020-03-26 10:51] LABS: Basophils % 0.1 % (0.0-0.8); Eosinophils # 0.1 10*3/uL (0.0-0.87); Eosinophils % 1.2 % (0.00-10.9); Hematocrit 28.4 VOL% (42.0-52.0); Hemoglobin 8.7 GM/DL (14.0-18.0); Immature Granulocytes % 2.2 %; Immature Granulocytes Absolute 0.15 #; Lymphocytes # 0.5 10*3/uL (1.4-4.0); Lymphocytes % 7.4 % (21.2-54.2); Mean Corpuscular HGB Conc 30.6 GM/DL (32-36); Mean Corpuscular Volume 87.1 FL (87-102); Mean Platelet Volume 11.1 FL (9.6-12.0); Monocytes % 5.1 % (1.7-12.7); Platelet Count 341 T/CUMM (130-400); Red Blood Count 3.26 MC/CUMM (3.8-5.5); Red Cell Distribution Width 15.4 % (9.3-17.3); White Blood Count 6.9 T/CUMM (4-12)
[2020-03-26 10:57] LABS: Calcium 8.4 MG/DL (8.5-10.1)
[2020-03-26 11:00] LABS: Prealbumin 16.8 MG/DL (20-40)
[2020-03-26] MEDS: DIGOXIN 0.25 MG TABLET PO SCH (15:27)
[2020-03-27] MEDS: INSULIN REGULAR 100 UNIT/ML SUBCUT SCH ×3 (03:17→12:41)
[2020-03-27] MEDS: ZINC GLUCONATE 50 MG TABLET PO SCH (09:56)
[2020-03-27] MEDS: MULTIVITAMIN LIQUID (CENTRUM) 60 ML BOTTLE PO SCH (09:56)
[2020-03-27] MEDS: METOPROLOL TARTRATE 100 MG TABLET PO SCH ×2 (09:56→21:51)
[2020-03-27] MEDS: predniSONE 20 MG TABLET PO SCH (09:56)
[2020-03-27] MEDS: ASCORBIC ACID 500 MG TABLET PO SCH ×2 (09:56→21:51)
[2020-03-27] MEDS: cloNIDine 0.3 MG/24 HR PATCH TRANSDERM SCH (09:56)
[2020-03-27] MEDS: ENOXAPARIN 40 MG/0.4 ML SYRINGE SUBCUT SCH (09:56)
[2020-03-27] MEDS: DIGOXIN 0.25 MG TABLET PO SCH (17:57)
[2020-03-28 03:17] LABS: Basophils % 0.2 % (0.0-0.8); Eosinophils # 0.1 10*3/uL (0.0-0.87); Eosinophils % 1.1 % (0.00-10.9); Hemoglobin 9.4 GM/DL (14.0-18.0); Immature Granulocytes % 3.8 %; Immature Granulocytes Absolute 0.32 #; Lymphocytes # 0.8 10*3/uL (1.4-4.0); Lymphocytes % 9.3 % (21.2-54.2); Mean Corpuscular HGB Conc 31.3 GM/DL (32-36); Mean Corpuscular Volume 86.2 FL (87-102); Mean Platelet Volume 10.5 FL (9.6-12.0); Monocytes % 7.8 % (1.7-12.7); Neutrophils % 77.8 % (38.7-73.9); Platelet Count 322 T/CUMM (130-400); Red Blood Count 3.48 MC/CUMM (3.8-5.5); Red Cell Distribution Width 15.5 % (9.3-17.3); White Blood Count 8.4 T/CUMM (4-12)
[2020-03-28] MEDS: METOPROLOL TARTRATE 100 MG TABLET PO SCH ×2 (08:01→21:08)
[2020-03-28] MEDS: MULTIVITAMIN LIQUID (CENTRUM) 60 ML BOTTLE PO SCH (08:01)
[2020-03-28] MEDS: ASCORBIC ACID 500 MG TABLET PO SCH ×2 (08:01→21:08)
[2020-03-28] MEDS: ENOXAPARIN 40 MG/0.4 ML SYRINGE SUBCUT SCH (08:01)
[2020-03-28] MEDS: ZINC GLUCONATE 50 MG TABLET PO SCH (08:01)
[2020-03-28] MEDS: predniSONE 20 MG TABLET PO SCH (08:01)
[2020-03-28] MEDS: DIGOXIN 0.25 MG TABLET PO SCH (17:05)
[2020-03-29 06:15] LABS: Basophils % 0.3 % (0.0-0.8); Eosinophils # 0.1 10*3/uL (0.0-0.87); Eosinophils % 1.5 % (0.00-10.9); Hematocrit 27.7 VOL% (42.0-52.0); Hemoglobin 8.8 GM/DL (14.0-18.0); Immature Granulocytes % 6.4 %; Immature Granulocytes Absolute 0.39 #; Lymphocytes # 0.7 10*3/uL (1.4-4.0); Lymphocytes % 11.6 % (21.2-54.2); Mean Corpuscular HGB Conc 31.8 GM/DL (32-36); Mean Corpuscular Volume 84.7 FL (87-102); Mean Platelet Volume 10.7 FL (9.6-12.0); Monocytes % 10.8 % (1.7-12.7); Neutrophils % 69.4 % (38.7-73.9); Platelet Count 297 T/CUMM (130-400); Red Blood Count 3.27 MC/CUMM (3.8-5.5); Red Cell Distribution Width 15.5 % (9.3-17.3); White Blood Count 6.1 T/CUMM (4-12)
[2020-03-29 07:27] LABS: Band Neutrophils 11 % (0-10); Eosinophils 6 % (0-10); Lymphocytes 7 % (20-55); Segmented Neutrophils 67 % (50-85); Smudge Cells 1+; Total Cells Counted 100
[2020-03-29 07:28] LABS: Anisocytosis Slight; Hypochromasia Slight; Platelet Estimate Normal
[2020-03-29] MEDS: MULTIVITAMIN LIQUID (CENTRUM) 60 ML BOTTLE PO SCH (12:41)
[2020-03-29] MEDS: ZINC GLUCONATE 50 MG TABLET PO SCH (12:42)
[2020-03-29] MEDS: predniSONE 20 MG TABLET PO SCH (12:42)
[2020-03-29] MEDS: ASCORBIC ACID 500 MG TABLET PO SCH ×2 (12:42→20:45)
[2020-03-29] MEDS: ENOXAPARIN 40 MG/0.4 ML SYRINGE SUBCUT SCH (12:42)
[2020-03-29] MEDS: METOPROLOL TARTRATE 100 MG TABLET PO SCH ×2 (12:42→20:45)
[2020-03-29] MEDS: DIGOXIN 0.25 MG TABLET PO SCH (12:43)
[2020-03-30 06:22] LABS: Basophils % 0.7 % (0.0-0.8); Eosinophils # 0.1 10*3/uL (0.0-0.87); Eosinophils % 1.9 % (0.00-10.9); Hematocrit 28.1 VOL% (42.0-52.0); Immature Granulocytes % 6.1 %; Immature Granulocytes Absolute 0.35 #; Lymphocytes # 0.7 10*3/uL (1.4-4.0); Lymphocytes % 11.3 % (21.2-54.2); Mean Corpuscular Volume 84.9 FL (87-102); Mean Platelet Volume 10.7 FL (9.6-12.0); Monocytes % 9.4 % (1.7-12.7); Neutrophils % 70.6 % (38.7-73.9); Platelet Count 286 T/CUMM (130-400); Red Blood Count 3.31 MC/CUMM (3.8-5.5); Red Cell Distribution Width 15.8 % (9.3-17.3); White Blood Count 5.7 T/CUMM (4-12)
[2020-03-30 06:42] LABS: Calcium 8.3 MG/DL (8.5-10.1); Osmolality,Calculated 270.1 MOS/KG (273-304)
[2020-03-30 07:16] LABS: Band Neutrophils 1 % (0-10); Eosinophils 2 % (0-10); Hypochromasia 1+; Lymphocytes 5 % (20-55); Microcytosis 1+; Ovalocytes Slight; Polychromasia Slight; Promyelocytes 1 %; Segmented Neutrophils 86 % (50-85); Total Cells Counted 100
[2020-03-30 07:18] LABS: Platelet Estimate Normal
[2020-03-30 07:19] LABS: Target Cells Slight
[2020-03-30] MEDS: MULTIVITAMIN LIQUID (CENTRUM) 60 ML BOTTLE PO SCH (10:25)
[2020-03-30] MEDS: ENOXAPARIN 40 MG/0.4 ML SYRINGE SUBCUT SCH (10:25)
[2020-03-30] MEDS: METOPROLOL TARTRATE 100 MG TABLET PO SCH ×2 (10:25→21:34)
[2020-03-30] MEDS: DIGOXIN 0.25 MG TABLET PO SCH (14:38)
[2020-03-31 06:08] LABS: Basophils # 0.1 10*3/uL (0.0-0.2); Basophils % 0.9 % (0.0-0.8); Eosinophils # 0.1 10*3/uL (0.0-0.87); Eosinophils % 1.9 % (0.00-10.9); Hematocrit 27.8 VOL% (42.0-52.0); Hemoglobin 8.9 GM/DL (14.0-18.0); Immature Granulocytes Absolute 0.35 #; Lymphocytes # 0.8 10*3/uL (1.4-4.0); Lymphocytes % 13.5 % (21.2-54.2); Mean Corpuscular Volume 84.8 FL (87-102); Mean Platelet Volume 10.4 FL (9.6-12.0); Monocytes % 10.9 % (1.7-12.7); Neutrophils % 66.8 % (38.7-73.9); Platelet Count 286 T/CUMM (130-400); Red Blood Count 3.28 MC/CUMM (3.8-5.5); Red Cell Distribution Width 15.6 % (9.3-17.3); White Blood Count 5.9 T/CUMM (4-12)
[2020-03-31 06:34] LABS: Eosinophils 2 % (0-10); Hypochromasia 1+; Lymphocytes 7 % (20-55); Microcytosis Slight; Platelet Estimate Adequate; Segmented Neutrophils 84 % (50-85); Total Cells Counted 100
[2020-03-31] MEDS: MULTIVITAMIN LIQUID (CENTRUM) 60 ML BOTTLE PO SCH (08:32)
[2020-03-31] MEDS: METOPROLOL TARTRATE 100 MG TABLET PO SCH (08:33)
[2020-03-31 08:42] VITALS: BP 150/74
[2020-03-31] MEDS: ENOXAPARIN 40 MG/0.4 ML SYRINGE SUBCUT SCH (09:00)
[2020-03-31] MEDS: DIGOXIN 0.25 MG TABLET PO SCH (12:40)
== END 2020-03-31 15:33 | disposition home health service (06) | DRG 207 ==
LOC: N.CC 14:37 → SUATTDRO 14:37 → N.2W 03-21 17:59
PROVIDERS: ADMIT Internal Medicine; ATTEND Internal Medicine